=== PATIENT | female | born 1965 | race Caucasian/White ===

== ENCOUNTER 2016-05-20 09:38 | Emergency (ER) | payer OTHER ==
[~2016-05-20] VITALS: Ht 172.7 cm; Wt 82.0 kg
[~2016-05-20 09:38] MED LIST: CHANTIX
[2016-05-20 09:40] VITALS: BP 144/69; PULSE 78; RESP 16; TEMP 97.7; O2SAT 99
[2016-05-20] MEDS ORDERED: BACT800T5 PO ×2 (10:07→11:07)
--- NOTE | 2016-05-20 10:09 | PD ---
HPI . Skin problem Chief Complaint: Skin Problem Time Seen by Provider: 09:54 Travel History International Travel<30 days: No Contact w/Intl Traveler<30days: No Traveled to known affect area: No History of Present Illness HPI Patient presents with an inflamed area on her left ankle. She states that she was apparently bitten by something about a week ago. She states that it started out looking like an anterior right. It has gotten progressively worse since that time. She was seen by dermatology 4 days ago and placed on Keflex. Despite that, the lesion has gotten worse rather than better. She denies any systemic symptoms such as fever. PFSH Past Medical History ?: Not LMP: 20 DAYS AGO Past Surgical History Section: Yes Ear Surgery: Yes Tonsillectomy: Yes Social History Alcohol Use: Yes (4 DRINKS WEEK) Tobacco Use: Yes (1/2 PPD) Allergies-Medications (Allergen,Severity, Reaction): Coded Allergies: No Known Allergies (Verified Allergy, Mild, 12/03/06) Reported Meds & Prescriptions Reported Meds & Active Scripts Active Reported [Chantix] Review of Systems Except as stated in HPI: all other systems reviewed are Neg General / Constitutional: No: Fever, Chills Skin: Positive Lesions Physical Exam Narrative GENERAL: This is a healthy-appearing woman in no acute distress SKIN: Warm and dry. She has a lesion on her left lateral ankle which has a necrotic appearing center. Necrotic appearing center is about 9 mm in diameter. Then there is a larger area of erythema, warmth and swelling. There is no fluctuance. There is some serous drainage from the necrotic area. HEAD: Atraumatic. Normocephalic. EYES: Pupils equal and round. ENT: No nasal bleeding or discharge. Mucous membranes pink and moist. NECK: Trachea midline. CARDIOVASCULAR: Regular rate and rhythm. RESPIRATORY: No accessory muscle use. MUSCULOSKELETAL: No obvious deformities. No edema. NEUROLOGICAL: Awake and alert. No obvious cranial nerve deficits. Motor grossly within normal limits. Normal speech. PSYCHIATRIC: Appropriate mood and affect; insight and judgment normal. Data Data Last Documented VS Vital Signs Date Time Temp Pulse Resp B/P Pulse Ox O2 Delivery O2 Flow Rate FiO2 05/20/16 09:40 97.7 78 16 144/69 99 Room Air MDM Medical Decision Making Medical Screen Exam Complete: Yes Emergency Medical Condition: Yes Differential Diagnosis Differential diagnosis includes but is not limited to cellulitis, abscess, brown recluse spider bite Narrative Course Patient presents for evaluation and treatment of a necrotic area on her left ankle with some surrounding erythema and warmth. She is on Keflex which is not helping. I will change her to Septra and have her follow-up with either her medical assistant supervisor or PMD on Tuesday for further evaluation. Diagnosis Primary Impression: Cellulitis Qualified Code: L03.116 - Cellulitis of left lower extremity Patient Instructions: Brown Recluse Spider Bite (GEN), Cellulitis (ED), General Instructions Additional Instructions: Bactrim as directed. Stop the Keflex. Follow up with either your medical assistant supervisor or your primary doctor Tuesday for recheck. You may ultimately need to see a surgeon. Scripts Sulfamethoxazole-Trimethoprim (Bactrim DS)800-160 Mg Tab1 Tab PO BID #[id number] TAB Ref 0 Prov:Regina Adams MD 05/20/16 Disposition: 01 DISCHARGE HOME Condition: Stable Regina Adams MD May 20, 2016 10:08
== END 2016-05-20 11:13 | disposition home or self-care (01) ==
LOC: NETRI 09:38
DX: L03.116 Cellulitis of left lower limb (principal)
CPT/HCPCS: 99282